=== PATIENT | female | born 1995 | race Caucasian/White ===

== ENCOUNTER 2023-02-18 11:09 | Emergency (ER) | payer BC ==
[2023-02-18 11:20] VITALS: BP 140/75; PULSE 108; RESP 18; TEMP 99.9; BMI 41.9
== END 2023-02-18 12:40 | disposition home or self-care (01) ==
LOC: JERFT 11:09
DX: R50.9 Fever, unspecified (principal); R11.0 Nausea; J02.9 Acute pharyngitis, unspecified; R05.9 Cough, unspecified; J39.2 Other diseases of pharynx; J06.9 Acute upper respiratory infection, unspecified; Z20.822 Contact with and (suspected) exposure to COVID-19
CPT/HCPCS: 0241U-QW; 87651; 99283-25